=== PATIENT | male | born 1970 | race Caucasian/White ===

== ENCOUNTER → 2021-09-29 | Outpatient (CLI) | payer OTHER | LOC: CAT 09:19 | PROVIDERS: ATTEND Nurse Practitioner | DX: Z13.6 Encounter for screening for cardiovascular disorders (principal) ==

== ENCOUNTER → 2021-10-05 | Outpatient (CLI) | payer OTHER | LOC: MRI 13:42 | PROVIDERS: ATTEND Nurse Practitioner | DX: G93.89 Other specified disorders of brain (principal); R53.1 Weakness ==